=== PATIENT | female | born 1985 | race Two or more races ===

== ENCOUNTER 2019-10-23 03:47 | Inpatient (IN) | payer MEDICAID ==
[~2019-10-23] VITALS: Ht 157.5 cm; Wt 101.4 kg
[2019-10-23] MEDS ORDERED: LACTATED RINGERS 1,000 ML IV SCH (05:34)
[2019-10-23] MEDS ORDERED: SODIUM CITRATE/CITRIC ACID 30 ML UDC PO ONE (06:00)
[2019-10-23] MEDS ORDERED: METOCLOPRAMIDE 5 MG/ML, 2ML IV ONE (06:00)
[2019-10-23] MEDS ORDERED: LACTATED RINGERS 1,000 ML IVBOLUS ONE (06:00)
[2019-10-23 06:06] VITALS: BP 116/73
[2019-10-23 06:11] LABS: BASOPHILS # (AUTO) 0.03 x10^3/uL (0-0.1); BASOPHILS % (AUTO) 0 % (0-1); EOSINOPHILS # (AUTO) 0.07 x10^3/uL (0-0.4); EOSINOPHILS % (AUTO) 1 % (1-7); LYMPHOCYTES # (AUTO) 2.74 x10^3/uL (1-3.4); LYMPHOCYTES % (AUTO) 29 % (22-44); MD NO; MEAN CORPUSCULAR HGB CONC 32.3 g/dL (32.4-35.8); MEAN CORPUSCULAR VOLUME 77.4 fL (80-100); MEAN PLATELET VOLUME 8.6 fL (7.4-10.4); MONOCYTES # (AUTO) 0.54 x10^3/uL (0.2-0.8); MONOCYTES % (AUTO) 6 % (2-9); NEUTROPHILS # (AUTO) 6.16 x10^3/uL (1.8-6.8); NEUTROPHILS % (AUTO) 65 % (42-75); PLATELET COUNT 233 x10^3/uL (130-400); RED BLOOD COUNT 4.65 x10^6/uL (3.82-5.3); RED CELL DISTRIBUTION WIDTH 15.5 % (9.6-15.2)
[2019-10-23 06:17] LABS: ALBUMIN 2.4 g/dL (3.4-5.0); ANION GAP 6 mmol/L (5-15); CALCIUM 8.6 mg/dL (8.5-10.1); CHLORIDE 113 mmol/L (98-107)
[2019-10-23 06:21] LABS: ALANINE AMINOTRANSFERASE 17 U/L (12-78); ALKALINE PHOSPHATASE 231 U/L (45-117); BILIRUBIN,TOTAL 0.2 mg/dL (0.2-1.0); CREATININE 0.52 mg/dL (0.55-1.02); TOTAL PROTEIN 6.7 g/dL (6.4-8.2)
[2019-10-23 06:23] LABS: BILIRUBIN, DIRECT < 0.1 mg/dL (0.1-0.2)
[2019-10-23] MEDS ORDERED: OXYTOCIN 30U/ 0.9% NaCL 500ML 500 ML ONE (06:51)
[2019-10-23] MEDS ORDERED: SODIUM CITRATE/CITRIC ACID 30 ML UDC ONE (06:51)
[2019-10-23] MEDS ORDERED: NEWBORN KIT ONE (06:51)
[2019-10-23] MEDS ORDERED: METOCLOPRAMIDE 5 MG/ML, 2ML ONE (06:51)
[2019-10-23] MEDS ORDERED: MISOPROSTOL 200 MCG TABLET ONE (07:20)
[2019-10-23] MEDS: LACTATED RINGERS 1,000 ML IV SCH ×5 (07:26→23:26)
[2019-10-23] MEDS ORDERED: morphine SULFATE/PF 0.5 MG/ML, 10ML ONE (07:26)
[2019-10-23] MEDS ORDERED: ONDANSETRON 2MG/ML, 2ML ONE (07:28)
[2019-10-23] MEDS ORDERED: KETOROLAC 30 MG/1 ML ONE ×2 (07:28→14:40)
[2019-10-23] MEDS ORDERED: WATER-INJECTION,STERILE 10 ML IV ONE (07:28)
[2019-10-23] MEDS ORDERED: CEFAZOLIN 1,000 MG ONE (07:28)
[2019-10-23] MEDS ORDERED: DEXAMETHASONE 4 MG/ML, 1ML ONE (07:28)
[2019-10-23] MEDS ORDERED: SODIUM CHLORIDE 0.9% PF 10ML ONE (07:28)
[2019-10-23] MEDS ORDERED: OXYTOCIN 10 UNITS/ML, 1ML ONE (07:28)
[2019-10-23] MEDS ORDERED: CARBOPROST TROMETHAMINE 250 MCG/ML, 1ML IM PRN (07:30)
[2019-10-23] MEDS ORDERED: IBUPROFEN 600 MG TABLET PO PRN (07:30)
[2019-10-23] MEDS ORDERED: MISOPROSTOL 200 MCG TABLET PR PRN (07:30)
[2019-10-23] MEDS ORDERED: ONDANSETRON 2MG/ML, 2ML IV PRN (07:30)
[2019-10-23] MEDS ORDERED: MORPHINE SULFATE 4 MG/ML, 1ML IVPush PRN (07:30)
[2019-10-23] MEDS ORDERED: morphine SULFATE 10 MG/ML, 1ML IVPush PRN (07:30)
[2019-10-23] MEDS ORDERED: OXYcodone/APAP 5/325MG TABLET PO PRN (07:30)
[2019-10-23] MEDS ORDERED: METHYLERGONOVINE 0.2 MG/ML IM PRN (07:30)
[2019-10-23] MEDS ORDERED: SIMETHICONE 80 MG CHEW TAB PO PRN (07:30)
[2019-10-23] MEDS ORDERED: ACETAMINOPHEN 325 MG TABLET PO PRN (07:30)
[2019-10-23] MEDS ORDERED: MEPERIDINE/PF 50 MG/ML ONE (08:48)
[2019-10-23] MEDS: MEPERIDINE/PF 25MG/ML,1ML IVPush PRN ×2 (08:50→08:52)
[2019-10-23] MEDS: OXYTOCIN 30U/ 0.9% NaCL 500ML 500 ML IV SCH ×2 (09:36→17:26)
[2019-10-23 10:45] VITALS: BP 115/79
[2019-10-23] MEDS ORDERED: DIPHENHYDRAMINE 25 MG CAPSULE PO PRN (15:00)
[2019-10-23] MEDS: KETOROLAC 30 MG/1 ML IVPush SCH ×2 (15:08→22:04)
[2019-10-23] MEDS: PRENATAL VIT/IRON/FA 1 EACH TABLET PO SCH (15:09)
[2019-10-23 15:11] VITALS: BP 105/70
[2019-10-23 15:11] LABS: BASOPHILS % (AUTO) 0 % (0-1); EOSINOPHILS % (AUTO) 0 % (1-7); LYMPHOCYTES # (AUTO) 0.99 x10^3/uL (1-3.4); LYMPHOCYTES % (AUTO) 7 % (22-44); MD NO; MEAN CORPUSCULAR HEMOGLOBIN 25.1 pg (27.0-34.8); MEAN CORPUSCULAR HGB CONC 32.9 g/dL (32.4-35.8); MEAN CORPUSCULAR VOLUME 76.4 fL (80-100); MEAN PLATELET VOLUME 9.2 fL (7.4-10.4); MONOCYTES # (AUTO) 0.32 x10^3/uL (0.2-0.8); MONOCYTES % (AUTO) 2 % (2-9); NEUTROPHILS # (AUTO) 12.51 x10^3/uL (1.8-6.8); NEUTROPHILS % (AUTO) 91 % (42-75); PLATELET COUNT 233 x10^3/uL (130-400); RED BLOOD COUNT 4.37 x10^6/uL (3.82-5.3); RED CELL DISTRIBUTION WIDTH 15.3 % (9.6-15.2)
[2019-10-23] MEDS: OXYcodone/APAP 5/325MG TABLET PO PRN (19:39)
[2019-10-23 20:00] VITALS: BP 95/61
[2019-10-24] VITALS: BP 98/65
[2019-10-24] MEDS: LACTATED RINGERS 1,000 ML IV SCH ×6 (03:26→23:26)
[2019-10-24] MEDS: OXYTOCIN 30U/ 0.9% NaCL 500ML 500 ML IV SCH ×3 (03:26→23:26)
[2019-10-24 04:00] VITALS: BP 106/65
[2019-10-24] MEDS: KETOROLAC 30 MG/1 ML IVPush SCH ×4 (04:00→23:17)
[2019-10-24] MEDS: PRENATAL VIT/IRON/FA 1 EACH TABLET PO SCH (07:54)
[2019-10-24] MEDS: DOCUSATE 100 MG CAPSULE PO PRN ×2 (07:54→23:17)
[2019-10-24 08:00] VITALS: BP 104/69
[2019-10-24] MEDS: OXYcodone/APAP 5/325MG TABLET PO PRN (10:01)
[2019-10-24 19:50] VITALS: BP 115/73
[2019-10-25] MEDS: KETOROLAC 30 MG/1 ML IVPush SCH ×2 (05:11→11:04)
[2019-10-25] MEDS: LACTATED RINGERS 1,000 ML IV SCH ×2 (07:26→09:26)
[2019-10-25 07:50] VITALS: BP 109/73
[2019-10-25] MEDS: PRENATAL VIT/IRON/FA 1 EACH TABLET PO SCH (09:00)
[2019-10-25] MEDS: OXYTOCIN 30U/ 0.9% NaCL 500ML 500 ML IV SCH (09:26)
[2019-10-25] MEDS ORDERED: IBUP-1222 PO (10:27)
[2019-10-25] MEDS ORDERED: SENN-52 PO (10:27)
[2019-10-25] MEDS ORDERED: OXYC-302 PO (10:27)
== END 2019-10-25 13:15 | disposition home or self-care (01) | DRG 540 ==
LOC: LDIP 05:31 → 2NW 10:53
PROVIDERS: ADMIT Obstetrics & Gynecology; ATTEND Obstetrics & Gynecology
PROC: 10D00Z1 Extraction of Products of Conception, Low, Open Approach (ICD-10-PCS; principal; 2019-10-23)
PROC: 0UB70ZZ Excision of Bilateral Fallopian Tubes, Open Approach (ICD-10-PCS; 2019-10-23)
DX: O13.4 Gestational [pregnancy-induced] hypertension without significant proteinuria, complicating childbirth (principal); F41.9 Anxiety disorder, unspecified; O33.9 Maternal care for disproportion, unspecified; O36.63X0 Maternal care for excessive fetal growth, third trimester, not applicable or unspecified; O99.344 Other mental disorders complicating childbirth; O69.1XX0 Labor and delivery complicated by cord around neck, with compression, not applicable or unspecified; Z37.0 Single live birth; Z30.2 Encounter for sterilization; Z3A.38 38 weeks gestation of pregnancy
CPT/HCPCS: 36415; 80053; 82248; 82803; 84550; 85025; 86592; 86850; 86900; 86923; 87806; 88302; G0378; J0690; J1100; J1885; J2274; J2405; G0475; J2175; J2590; J2765; J7120